=== PATIENT | female | born 1965 | race Caucasian/White ===

== ENCOUNTER 2019-03-20 09:17 | Day surgery (SDC) | payer OTHER ==
[2019-03-13 19:30] VITALS: BMI 36.7
[2019-03-20] MEDS ORDERED: PROPOFOL 20 ML ONE ×2 (09:42)
[2019-03-20 11:06] VITALS: BP 116/66; PULSE 85; TEMP 98
== END 2019-03-20 11:15 | disposition home or self-care (01) ==
LOC: FASU-ENDO 09:17
PROVIDERS: ATTEND Internal Medicine Gastroenterology
PROC: 0DJD8ZZ Inspection of Lower Intestinal Tract, Via Natural or Artificial Opening Endoscopic (ICD-10-PCS; principal; 2019-03-20 10:31)
DX: Z12.11 Encounter for screening for malignant neoplasm of colon (principal); K64.1 Second degree hemorrhoids; K57.30 Diverticulosis of large intestine without perforation or abscess without bleeding